=== PATIENT | female | born 1990 | race Caucasian/White ===

== ENCOUNTER 2021-06-14 19:43 | Emergency (ER) | payer BC ==
[~2021-06-14] VITALS: Ht 170.2 cm; Wt 83.5 kg
[2021-06-14 20:38] LABS: URINE BILIRUBIN NEGATIVE (Negative); URINE BLOOD 1+ (Negative); URINE COLOR YELLOW; URINE GLUCOSE-RANDOM NEGATIVE (Negative); URINE KETONES NEGATIVE (Negative); URINE LEUKOCYTES 1+ (Negative); URINE NITRITE NEGATIVE (Negative); URINE PROTEIN NEGATIVE (Negative); URINE UROBILINOGEN 0.2 E.U./dl (0.2-1.0)
[2021-06-14 20:40] LABS: URINE CLARITY CLOUDY
[2021-06-14 20:44] LABS: ABSOLUTE BASOPHILS 0.1 thou/uL (0.0-0.2); ABSOLUTE LYMPHOCYTES 1.6 thou/uL (0.8-5.3); ABSOLUTE MONOCYTES 1.4 thou/uL (0.0-1.2); ABSOLUTE NEUTROPHILS 13.1 thou/uL (1.6-8.1); BASOPHILS 0.4 %; HEMATOCRIT 38.7 % (37.0-47.0); HEMOGLOBIN 13.1 gm/dL (12.0-15.0); LYMPHOCYTES 10.2 %; MCH 30.7 pg (26.0-34.0); MCHC 33.8 g/dL (28.0-37.0); MCV 90.8 fL (80.0-100.0); MONOCYTES 8.7 %; MPV 8.7 fl. (7.2-11.1); NUCLEATED RBCS 0 /100WBC; PLATELET COUNT* 265 thou/uL (150-400); POLYS 80.7 %; RBC 4.26 mil/uL (4.20-5.00); RDW-CV 12.9 % (10.5-14.5); WBC 16.2 thou/uL (4.0-11.0)
[2021-06-14 20:46] LABS: SQUAMOUS >10 Many /LPF (0-3); URINE RBC 0-2 Rare /HPF (0-2); URINE WBC 6-15 Few /HPF (0-5)
[2021-06-14 20:47] LABS: CASTS None Seen /LPF (None Seen); CRYSTALS None Seen /LPF (None Seen)
[2021-06-14 20:48] LABS: POTASSIUM 3.8 mmol/L (3.5-5.1)
[2021-06-14 20:57] LABS: CALCIUM 8.5 mg/dL (8.5-10.1); CREATININE 0.8 mg/dL (0.6-1.3)
[2021-06-14 21:01] LABS: ALBUMIN 3.7 g/dL (3.4-5.0); TOTAL BILIRUBIN 0.6 mg/dL (<0.1-1.0); TOTAL PROTEIN 7.6 g/dL (6.4-8.2)
[2021-06-15 00:46] VITALS: BP 108/68
--- NOTE | 2021-06-15 09:28 | EKG ---
[place] [address] ELECTROCARDIOGRAM REPORT Name: CLAUS EDMOND Room: [place]#: [id number] Admission: 06/14/21 Attend Phys: Discharge: 06/15/21 Date of : 89 Date of Service: 06/14/211956 Report #: [id number] THIS REPORT FOR: //name// [facility] ED Test Date: 2021-06-14 Test Time: 19:57:42 Pat Name: CLAUS EDMOND Department: Room: Gender: Enterprise Data Architect: [place] : 1990 Requested By: Alverto Maharaj Order Number: [id number] MD: Kuldeep Chavez Measurements Intervals [place] Rate: 126 P: 52 [place]: 139 QRS: -5 QRSD: 101 T: -1 QT: 290 QTc: 420 Interpretive Statements Sinus tachycardia Borderline T abnormalities, diffuse leads No previous ECG available for comparison Electronically Signed On 06-15-2021 9:28:48 FOREMAN/PROJECT MANAGER by Kuldeep Chavez [email or web address] <ELECTRONICALLY SIGNED> By: Kuldeep Chavez MD, [facility] 02/927 56 56 Kuldeep Chavez MD, FACC /EPI
== END 2021-06-15 00:53 | disposition home or self-care (01) ==
LOC: EDBD 19:43 → M.ERS 19:43
PROVIDERS: Physician Assistant
DX: R00.0 Tachycardia, unspecified (principal); Z20.822 Contact with and (suspected) exposure to COVID-19